=== PATIENT | female | born 1970 | race Caucasian/White ===

== ENCOUNTER → 2016-11-25 | Outpatient (CLI) | payer BC ==
[~2016-11-25] MED LIST: PHENTERMINE37.5 M1 PO; PROAIR HFA0.09 MG/AC IH; SYNTHROID0.175 MG PO; SYNTHROID0.2 MG/TAB PO; TOPAMAX 25MG25 M1 PO; VITAMIN D 50,1.25 MG PO; VITAMIN D PO; VITAMIN D32000 IU PO; VITAMIN D50000 I1 PO
== END ==
LOC: MC.RAD 07:00
DX: Z12.31 Encounter for screening mammogram for malignant neoplasm of breast (principal); Z80.3 Family history of malignant neoplasm of breast

== ENCOUNTER → 2017-11-28 | Outpatient (CLI) | payer BC | LOC: MC.RAD 07:00 | DX: Z12.31 Encounter for screening mammogram for malignant neoplasm of breast (principal); N63.10 Unspecified lump in the right breast, unspecified quadrant ==

== ENCOUNTER → 2017-12-09 | Outpatient (CLI) | payer BC | LOC: MC.RAD 08:26 | DX: N60.01 Solitary cyst of right breast (principal); N63.11 Unspecified lump in the right breast, upper outer quadrant ==

== ENCOUNTER → 2018-12-20 | Outpatient (CLI) | payer BC | LOC: MC.RAD 07:21 | DX: Z12.31 Encounter for screening mammogram for malignant neoplasm of breast (principal) ==

== ENCOUNTER → 2020-01-10 | Outpatient (CLI) | payer BC | LOC: MC.RAD 15:53 | DX: Z12.31 Encounter for screening mammogram for malignant neoplasm of breast (principal) ==

== ENCOUNTER → 2021-03-10 | Outpatient (CLI) | payer BC | LOC: MC.RAD 07:24 | DX: Z12.31 Encounter for screening mammogram for malignant neoplasm of breast (principal) ==

== ENCOUNTER 2021-04-16 06:35 | Day surgery (SDC) | payer BC ==
[~2021-04-16] VITALS: Ht 162.6 cm; Wt 115.5 kg
[2021-04-16 07:00] VITALS: BP 111/77; PULSE 67; TEMP 97.7
[2021-04-16 08:30] VITALS: BP 105/72; PULSE 72; TEMP 97.7
[2021-04-16 08:45] VITALS: BP 115/83; PULSE 62
[2021-04-16 09:00] VITALS: BP 118/80; PULSE 61
[2021-04-16 09:15] VITALS: BP 125/78; PULSE 54
--- NOTE | 2021-04-16 09:30 | NUR ---
0830 Pt returns from endo procedure via cart and RN assist to [facility] [place] [facility]. Pt ambulates from cart to recliner with RN assist. Monitors on and alarms set. Call light within reach. Report received from [facility]. Pt alert and oriented. Pt requests muffin and soda pop. Pt denies any pain or nausea. 0855 Pt taking food and drink well. No complications noted. 0920 Discharge instructions given to pt. All questions answered to her satisfaction. Handed to pt are a thank you card and discharge information. 0930 Pt transferred out of the hospital via wheelchair and this RN assist, to private vehicle driven by .
== END 2021-04-16 09:30 | disposition home or self-care (01) ==
LOC: SDCO 06:35
DX: Z12.11 Encounter for screening for malignant neoplasm of colon (principal); D12.2 Benign neoplasm of ascending colon; D12.5 Benign neoplasm of sigmoid colon; E66.9 Obesity, unspecified; J45.909 Unspecified asthma, uncomplicated; E03.9 Hypothyroidism, unspecified; Z20.822 Contact with and (suspected) exposure to COVID-19; Z79.899 Other long term (current) drug therapy; E54 Ascorbic acid deficiency; Z79.890 Hormone replacement therapy
CPT/HCPCS: J2704; J7120

== ENCOUNTER → 2022-03-11 | Outpatient (CLI) | payer BC | LOC: MC.RAD 07:00 | DX: Z12.31 Encounter for screening mammogram for malignant neoplasm of breast (principal) ==

== ENCOUNTER → 2024-04-09 | Outpatient (CLI) | payer BC | LOC: MC.RAD 07:00 | DX: Z12.31 Encounter for screening mammogram for malignant neoplasm of breast (principal) ==